=== PATIENT | male | born 2000 | race Two or more races ===

== ENCOUNTER 2019-05-12 20:00 | Emergency (ER) | payer MEDICAID ==
[~2019-05-12] VITALS: Ht 172.7 cm; Wt 59.0 kg
[~2019-05-12 20:00] MED LIST: IBUPROFEN600 MG ORAL; NKM
--- NOTE | 2019-05-12 20:18 | NUR ---
ED Nurse Note: PT WALKED IN C/O PAIN AND INJURY TO R BIG TOE, PT REPORTS HE INJURED WHILE PLAYING SOCCER X 3 DAYS. Pt is AO x 4times, VSS, on room air no distress. MARCO A seen Pt at bedside.
--- NOTE | 2019-05-12 20:30 | NUR ---
ED Nurse Note: X ray at bedside.
--- NOTE | 2019-05-12 20:52 | Emergency Room Report ---
History of Present Illness General Chief Complaint: Lower Extremity Injury Source: Patient Present Illness HPI 18-year-old male with history of kidney disease and currently missing a kidney and on enalapril up-to-date with visits with comptometrist here complaining of pain and swelling of her right big toe x3 days after playing soccer. Mild ecchymosis noted and bony tenderness noted. Patient is rating pain 10 out of 10 however has not taken medication for pain denies pain radiation, tingling and numbness. Denies all other injuries. Denies chest pain, shortness of breath, palpitation, abdominal pain, nausea vomiting. Allergies: Coded Allergies: No Known Allergies (Unverified , 08/29/16) Patient History Past Medical History: see triage record Past Surgical History: unable to obtain Pertinent Family History: none Immunizations: UTD Reviewed Nursing Documentation: PMH: Agreed; PSxH: Agreed Nursing Documentation-PMH Past Medical History: No History, Except For Hx Gastrointestinal Problems: Yes - dysplastic kidney Hx Dialysis: No - kidney problems Hx Neurological Problems: No Review of Systems All Other Systems: negative except mentioned in HPI Physical Exam Vital Signs Date Time Temp Pulse Resp B/P (MAP) Pulse Ox O2 Delivery O2 Flow Rate FiO2 05/12/19 20:14 98.2 56 18 130/80 (97) 98 Room Air Sp02 EP Interpretation: reviewed, normal General Appearance: no apparent distress, alert, GCS 15, non-toxic Head: normocephalic, atraumatic Eyes: bilateral eye normal inspection, bilateral eye PERRL ENT: hearing grossly normal, normal pharynx, no angioedema, normal voice Neck: full range of motion, supple/symm/no masses Respiratory: chest non-tender, lungs clear, normal breath sounds, speaking full sentences Cardiovascular #1: regular rate, rhythm, no edema, no murmur, normal capillary refill Cardiovascular #2: 2+ dorsalis pedis (R), 2+ dorsalis pedis (L) Gastrointestinal: normal inspection, soft Musculoskeletal: back normal, digits/nails normal, gait/station normal, normal range of motion, no calf tenderness, swelling - Right big toe, tender - Right big toe Neurologic: normal inspection, alert Psychiatric: normal inspection, judgement/insight normal Skin: other - Ecchymosis right big toe Lymphatic: no adenopathy Procedures Additional Procedure Procedure Narrative Claudio tape right big toe and second toe as well as postoperative shoe for symptom relief Medical Decision Making PA Attestation All diagnoses and treatment plans were reviewed and discussed with my supervising physician Dr. Blair Diagnostic Impression: Primary Impression: Contusion of right great toe without damage to nail, initial encounter ER Course 18-year-old male with history of kidney disease and currently missing a kidney and on enalapril up-to-date with visits with comptometrist here complaining of pain and swelling of her right big toe x3 days after playing soccer. Mild ecchymosis noted and bony tenderness noted. Patient is rating pain 10 out of 10 however has not taken medication for pain denies pain radiation, tingling and numbness. Denies all other injuries. Denies chest pain, shortness of breath, palpitation, abdominal pain, nausea vomiting. Ddx considered but are not limited to: Toe fracture, toe sprain, toe strain, toe contusion Vital signs: are WNL, pt. is afebrile H&PE are most consistent with: Toe contusion ORDERS: Toe x-ray, Tylenol ED INTERVENTIONS: Claudio tape, postoperative shoe DISCHARGE: At this time pt. is stable for d/c to home. Will provide printed patient care instructions, and any necessary prescriptions. Care plan and follow up instructions have been discussed with the patient prior to discharge. Avoid ibuprofen and Advil due to your kidney issues. Follow-up with your primary care provider alternate between icing and heating the affected area symptomatic postoperative shoe is given. Which will treat possible missed fracture. Other X-Ray Diagnostic Results Other X-Ray Diagnostic Results : X-Ray ordered: Right toe # of Views/Limited Vs Complete: 3 View Indication: Other - trauma PA Xray: Interpretation reviewed, by supervising MD, and agrees with findings. Interpretation: no dislocation, no soft tissue swelling, no fractures Impression: No acute disease Electronically Signed by: Ahmet Hernandez PA-C Last Vital Signs Date Time Temp Pulse Resp B/P (MAP) Pulse Ox O2 Delivery O2 Flow Rate FiO2 05/12/19 20:14 98.2 56 18 130/80 (97) 98 Room Air Disposition: HOME, SELF-CARE Condition: Stable Referrals: [facility],REFERRING (PCP) Patient Instructions: Foot Contusion Additional Instructions: Avoid ibuprofen and Advil due to your kidney issues. Follow-up with your primary care provider alternate between icing and heating the affected area symptomatic postoperative shoe is given. Which will treat possible missed fracture. Ahmet Ribeiro May 12, 2019 20:52
[2019-05-12] MEDS ORDERED: TYLENOL EXTRA500 MG ORAL (20:53)
--- NOTE | 2019-05-12 21:01 | NUR ---
ED Nurse Note: SANDRA wrap at bedside.
[2019-05-12 21:03] VITALS: BP 130/80
--- NOTE | 2019-05-12 21:04 | NUR ---
ER DISCHARGE NOTE: Patient is cleared to be discharged per ERMD, pt is aox4, on room air, with stable vital signs. pt was given dc and prescription instructions, pt was able to verbalize understanding, pt id band removed without complications. pt is able to ambulate with steady gait with mother. pt took all belongings.
--- NOTE | 2019-05-13 09:24 | Diagnostic Imaging Report ---
Indication: Trauma, pain Technique: 3 views of the right great toe Comparison: none Findings: There is a corner fracture of the anterior base of the distal phalanx. This is nondisplaced. No other acute fractures. No dislocations. The joint spaces are preserved. Impression: Positive for first distal phalangeal fracture. This represents a discrepancy from the ER preliminary interpretation reported in the electronic medical record. Discrepant findings phoned to Dr. Izaguirre in the emergency room at the time of interpretation
== END 2019-05-12 21:05 | disposition home or self-care (01) ==
LOC: EMR 20:37
DX: S90.111A Contusion of right great toe without damage to nail, initial encounter (principal); Q61.4 Renal dysplasia; X58.XXXA Exposure to other specified factors, initial encounter; Y93.66 Activity, soccer; Y92.9 Unspecified place or not applicable
CPT/HCPCS: 99283